=== PATIENT | female | born 2000 | race Caucasian/White ===

== ENCOUNTER 2023-09-14 13:10 | Emergency (ER) | payer BC, SELFPAY ==
[2023-09-14 13:16] VITALS: BP 133/69
--- NOTE | 2023-09-14 15:13 | ED.GENMED ---
History of Present Illness
General
Chief Complaint: Musculo-Skeletal Complaint
Source: patient
Exam Limitations: none
Time Seen by Provider: 09/14/23 14:24
Nursing documentation reviewed up to this point in time: agreed with
Travel History
Have you had any contact with someone who has COVID-19?: No
Do you have any symptoms of coronavirus? Fever > 100 degrees, chills, cough, shortness of breath, sore throat, loss of taste or smell, muscle aches, or headache?: No
History of Present Illness
History of Present Illness:
23 Y/O F with no sig pmh
here with L ankle pain and bruising and swelling after inversion injury while in [place] a few days ago
pt says she was walkign out of the [facility] after riding a mechanical bull and she twisted her ankle
walked on it that night but then got crutches and was able to laci wrap and elevate
she has pain/swelling/bruising to the ankle
no foot or knee pain
no meds taken for pain
Past History
Past History
ED Past Medical History: None
Social History
Tobacco: Non-smoker
Alcohol: Occasional
Drug: None
Personal: Single
Living: with family
Employment: Student
Review of Systems
Review of Systems
Allergies reviewed?: Yes
All Other Systems: Not applicable
Phy Exam
Physical Exam
Physical Exam:
GENERAL: Alert , in no apparent distress, comfortable at rest
HEAD: NCAT
CV: 2+ DP PULSES B/L
NEUROLOGICAL: Alert and oriented, no focal neuro deficits, , 5/5 strength, sensation intact, ambulation slight limp right leg
SKIN: Warm and dry, moderately swollen, ecchymosis laterally
MUSCULOSKELETAL: Moderate soft tissue swelling of the left ankle specifically left lateral malleolus region with ecchymosis, tenderness to the anterior and posterior tip of the lateral malleolus, no tenderness to the proximal base of the fifth
metatarsal, no other tenderness to the foot, stable ankle, no tenderness to the knee, full painless flexion intact
PSYCH: Normal and appropriate interaction.
Course
Orders/Labs/Results
Orders:
Orders
09/14/23 13:18
Ankle, left 3 view CR [CR Ankle - Left Min 3 Views ] Urgent
Comment:
Reason For Exam: pain, swelling
Vital Signs
Initial and Last Documented VS:
Initial Vital Signs
Temp Pulse Resp BP Pulse Ox
98.9 F 96 16 133/69 97
09/14/23 13:16 09/14/23 13:16 09/14/23 13:16 09/14/23 13:16 09/14/23 13:16
Last Documented Vital Signs
Temp Pulse Resp BP Pulse Ox
98.9 F 96 16 133/69 97
09/14/23 13:16 09/14/23 13:16 09/14/23 13:16 09/14/23 13:16 09/14/23 13:16
MDM/Problems Addressed
Differential Diagnosis Includes:
Ankle sprain, ankle fracture
MDM/Problems Addressed:
23-year-old healthy female with left lateral ankle pain and swelling and bruising after an inversion injury 3 days ago while in [place]. Patient has been mostly nonweightbearing using crutches that she bought at a pharmacy. She has some bruising
that is improving. Patient is able to toe touch but otherwise does not put weight down. On exam she has moderate swelling with ecchymosis, stable ankle. X-rays independently reviewed by me and negative for fracture. Will give her a walking boot
continue the use of crutches and follow-up with Ortho as needed
*Critical Care Note
Total Time (30-74mins, 75-104mins- exclusive of procedures): Not Applicable
ED Attending Note
-
Portions of this chart may have been created with voice recognition software.� Occasional wrong word or��sound alike� substitutions may have occurred due to the inherent limitations of voice recognition software.
Discharge Plan
Departure
Patient Disposition: Home (Routine Discharge)
Date of Disposition: 09/14/23
Time of Disposition: 15:19
Patient with high blood pressure during this ER visit?: No
Covid-19: Not Applicable
Discharge Problem:
Left ankle sprain
Instructions: Sprain (DC)
Referrals:
Elizabeth Jacobsen CRNP [Family Provider] -
Chaitanya Sanchez MD [Active] - Follow up in 5-7 days (ortho)
Activity Restrictions/Additional Instructions:
Your x-rays were negative for fracture. You likely sprained your ankle. Elevate and ice off-and-on as needed for pain. Use the walking boot and the crutches for assistance. You can also stay nonweightbearing by Laci wrapping and using just the
crutches for now until you feel like you are ready to put pressure on it. When you are you can use the boot for several days to a week or 2. If you are having severe pain you really should follow-up with orthopedics. Return for any concerns
Interventions
Interventions:
*ED COVID-19 Vaccine History Last Done: 09/14/23 13:16
*Nursing Disposition Last Done: 09/14/23 15:39
ED-Musculoskeletal Assessment Last Done: 09/14/23 13:52
Discharge Date and Time
Discharge Date/Time: 09/14/23 15:40
Print Language: GHANAIAN
== END 2023-09-14 15:40 | disposition home or self-care (01) ==
LOC: EMR 13:10
PROVIDERS: EMERGENCY PHYSICIAN Emergency Medicine; FAMILY PHYSICIAN Nurse Practitioner Adult Health
DX: S93.402A Sprain of unspecified ligament of left ankle, initial encounter (principal); X50.1XXA Overexertion from prolonged static or awkward postures, initial encounter
CPT/HCPCS: 99282; 73610